=== PATIENT | female | born 1990 | race Caucasian/White ===

== ENCOUNTER 2023-02-13 05:36 | Observation (INO) | payer OTHER ==
[~2023-02-13] VITALS: Ht 165.1 cm; Wt 128.4 kg
== END 2023-02-13 09:55 | disposition home or self-care (01) ==
LOC: 8 EST LDRP 05:36
PROVIDERS: ADMIT Obstetrics & Gynecology; ATTEND Obstetrics & Gynecology
DX: O42.92 Full-term premature rupture of membranes, unspecified as to length of time between rupture and onset of labor (principal); O62.9 Abnormality of forces of labor, unspecified; O24.419 Gestational diabetes mellitus in pregnancy, unspecified control; Z3A.39 39 weeks gestation of pregnancy; Z79.4 Long term (current) use of insulin
CPT/HCPCS: 82962; 76818; 76805; G0378 ×2; 99281